=== PATIENT | female | born 1995 | race Caucasian/White ===

== ENCOUNTER → 2017-04-13 | Emergency (ER) | payer MEDICAID, OTHER ==
--- NOTE | 2017-04-13 17:43 | PD ---
HPI Chief Complaint Cramping Date Seen: Apr 13, 2017 Time Seen: 17:41 Travel History International Travel<30 Days: No Contact w/Intl Traveler<30Days: No Known Affected Area: No History of Present Illness HPI 22-year-old at 33 weeks and 2 days comes in complaining of cramping in the lower abdomen since yesterday morning. It is occurred intermittently but it has not gone away despite hydration and bedrest. Patient denies vaginal bleeding, vaginal discharge, or contractions. Patient denies antepartum complications Weeks Gestation: 33 Para: 0 : 1 History Past Medical History Medical History: Denies Significant Hx Past Surgical History Narrative Surgical Wrist surgery 2 Family History Family History: Negative Social History Alcohol Use: No Tobacco Use: No Substance Abuse: No Allergies-Medications (Allergen,Severity, Reaction): Coded Allergies: No Known Allergies (Unverified , 04/13/17) Review of Systems Except as stated in HPI: all other systems reviewed are Neg Physical Exam Narrative GENERAL: Well-nourished, well-developed patient. SKIN: Warm and dry. HEAD: Normocephalic and atraumatic. EYES: No scleral icterus. No injection or drainage. ENT: No nasal drainage noted. Mucous membranes pink. Airway patent. NECK: Supple, trachea midline. No JVD. CARDIOVASCULAR: Regular rate and rhythm without murmurs, gallops, or rubs. RESPIRATORY: Breath sounds equal bilaterally. No accessory muscle use. ABDOMEN/GI: Abdomen soft, non-tender, bowel sounds present, no rebound, no guarding Gravid to [-33] weeks size Fundal Height: [-] GENITOURINARY: External Genitalia: intact and normal in appearance BUS glands: [-Normal] speculum examination revealed normal cervix, no discharge Cervix: [-Posterior] Dilatation: [Fingertip-] Effacement: [50] Station: [--3] Presentation: [-Vertex] Membranes: [intact ] Uterine Contractions: [-Absent] FHT's: Category: [-1] Baseline: [140-] Reactive: [-Moderate] Variability: [-Moderate] Decels: [-Absent] EXTREMITIES: No cyanosis or edema. BACK: Nontender without obvious deformity. No CVA tenderness. NEUROLOGICAL: Awake and alert. Motor and sensory grossly within normal limits. Five out of 5 muscle strength in all muscle groups. Normal speech. Data Data Vital Signs Reviewed: Yes Orders Orders Vital Signs (Adult) .ON ADMISSION (04/13/17 17:31) ^ Labor Status (04/13/17 17:31) Urinalysis - C+S If Indicated (04/13/17 17:31) Diet Liquid (04/13/17 Dinner) Fibronectin (04/13/17 17:31) Labs Laboratory Tests Test 04/13/17 17:30 04/13/17 17:35 Fibronectin NEGATIVE Urine Color LIGHT-YELLOW Urine Turbidity CLEAR Urine pH 6.5 Urine Specific [place] 1.009 Urine Protein NEG mg/dL Urine Glucose (UA) NEG mg/dL Urine Ketones NEG mg/dL Urine Occult Blood NEG Urine Nitrite NEG Urine Bilirubin NEG Urine Urobilinogen LESS THAN 2.0 MG/DL Urine Leukocyte Esterase NEG Urine WBC 1 /hpf Urine Squamous Epithelial Cells 1 /hpf Urine Mucus FEW /lpf Microscopic Urinalysis Comment CULT NOT INDICATED MDM Medical Record Reviewed: Yes Plan 22yo at 33 weeks gestation Cervix closed with negative FFN - Will discharge with limited activity and adequate hydration Follow up with OB provider on Diagnosis Diagnosis: Primary Impression: 33 weeks gestation of Additional Impression: Pelvic cramping in antepartum period Disposition: 01 DISCHARGE HOME Shanelle Dinero MD Apr 13, 2017 17:43
[2017-04-13 17:45] VITALS: PULSE 99
[2017-04-13 17:50] VITALS: PULSE 98
[2017-04-13 17:52] LABS: BLOOD, URINE NEG (NEG); COMMENT (UR) CULT NOT INDICATED; CULTURE IF INDICATED CULT NOT INDICATED; GLUCOSE,URINE NEG (NEG); KETONE, URINE NEG (NEG); MUCUS URINE FEW /lpf (OCC); NITRITE,URINE NEG (NEG); PH, URINE 6.5 (5.0-8.5); SQUAMOUS EPITHELIAL CELL URINE 1 /hpf (0-5); URINE COLOR LIGHT-YELLOW (YELLW/STRAW)
[2017-04-13 17:55] VITALS: PULSE 96
[2017-04-13 18:15] VITALS: PULSE 92
[2017-04-13 18:20] VITALS: PULSE 93
[2017-04-13 18:25] VITALS: PULSE 105
== END | disposition home or self-care (01) ==
LOC: HOBED 16:46
DX: O26.893 Other specified pregnancy related conditions, third trimester (principal); R10.30 Lower abdominal pain, unspecified; Z3A.33 33 weeks gestation of pregnancy
CPT/HCPCS: 59025; 81001; 82731

== ENCOUNTER 2017-05-08 16:32 | Observation (INO) | payer MEDICAID ==
[2017-05-08] MEDS ORDERED: LACTATED RINGER'S 1000 ML INJ 1,000 ML IV SCH (18:29)
--- NOTE | 2017-05-08 18:37 | PD ---
HPI Chief Complaint Crampy pains nausea and vomiting Date Seen: May 08, 2017 Time Seen: 18:30 Travel History International Travel<30 Days: No Contact w/Intl Traveler<30Days: No Known Affected Area: No History of Present Illness HPI Patient is 22-year-old white female at 36 weeks to [address] Burkett presents complaining of crampy pains nausea and vomiting last night some diarrhea today tracing is reactive and she is having contractions every 3-4 minutes since says that she is to Dr. Burkett yesterday and was 2 cm in breech she still breech and she is 2-3 cm and thick now Weeks Gestation: 36 Para: 0 : 1 History Social History Alcohol Use: No Tobacco Use: No Substance Abuse: No Allergies-Medications (Allergen,Severity, Reaction): Coded Allergies: No Known Allergies (Unverified , 04/13/17) Review of Systems General / Constitutional: No: Fever, Weight Gain, Chills, Other Eyes: No: Diploplia, Blurred Vision, Visual changes, Pain, Photophobia HENT: No: Headaches, Vertigo, Lightheadedness Cardiovascular: No: Irregular Rhythm, Chest Pain or Discomfort, Palpitations, Tachycardia, Syncope, Varicosities, Edema, Cyanosis Respiratory: No: Cough, Short of Breath, Other Gastrointestinal: Nausea, Vomiting, Diarrhea, Abdominal Pain Genitourinary: No: Decreased Urinary Output, Oliguria Musculoskeletal: No: Limited ROM, Weakness, Cramping, Edema, Pain Skin: No Rash, No Itching, No Dryness, No Lumps, No Change in Pigmentation, No Change in Nails, No Alopecia, No Lesions Neurologic: No: Weakness, Dizziness, Syncope, Focal Abnormalities, Coordination Problem, Headache, Slurred Speech, Seizures Psychiatric: No: Depression, Suicidal Ideations, Homicidal Ideation Endocrine: No: Heat Intolerance, Cold Intolerance, Polydipsia, Polyuria, Other Physical Exam Narrative GENERAL: Well-nourished, well-developed patient. SKIN: Warm and dry. HEAD: Normocephalic and atraumatic. EYES: No scleral icterus. No injection or drainage. ENT: No nasal drainage noted. Mucous membranes pink. Airway patent. NECK: Supple, trachea midline. No JVD. CARDIOVASCULAR: Regular rate and rhythm without murmurs, gallops, or rubs. RESPIRATORY: Breath sounds equal bilaterally. No accessory muscle use. BREASTS: Bilateral exam showed no masses , no retractions, no nipple discharge. ABDOMEN/GI: Abdomen soft, non-tender, bowel sounds present, no rebound, no guarding Gravid to [-36] weeks size Fundal Height: [36-] GENITOURINARY: External Genitalia: intact and normal in appearance BUS glands: [-] Cervix: [-] Dilatation: [-2-3] Effacement: [-30] Station: [-3] Presentation: [breech-] Membranes: [intact ] Uterine Contractions: [q 3-4 min-] FHT's: Category: [-1] Baseline: [-133] Reactive: [-yes] Variability: [mod-] Decels: [0-] EXTREMITIES: No cyanosis or edema. BACK: Nontender without obvious deformity. No CVA tenderness. NEUROLOGICAL: Awake and alert. Motor and sensory grossly within normal limits. Five out of 5 muscle strength in all muscle groups. Normal speech. Data Data Orders Orders Vital Signs (Adult) .ON ADMISSION (05/08/17 18:29) ^ Labor Status (05/08/17 18:29) Urinalysis - C+S If Indicated (05/08/17 18:29) Lactated Ringer's 1000 Ml Inj (Lr 1000 M (05/08/17 18:29) MDM Interpretation(s) Patient 22-year-old white female at [address] Burkett for care and is complaining of contractions denies as well as some crampy pain, nausea and vomiting, and diarrhea today. heart rate tracing is reactive she is mattie every 3-4 minutes mildly, cervix is 2-3 cm thick and high which was she was basically yesterday when she was2 cm and breech, she is still breech. Plan to begin IV hydrate some Zofran IV ,lomotil by mouth and observe. Plan Plan to IV hydrate sedate medicate as needed , cut contractions persisted will consider overnight observation the cause of the malpresentation. We'll discuss that with Dr. Burkett or his the call DrJohanny Diagnosis Diagnosis: Primary Impression: 36 weeks gestation of Additional Impressions: Breech presentation Henderson Hick's contraction Disposition: 01 DISCHARGE HOME Condition: Stable Lazaro Peck II, MD May 08, 2017 18:37
[2017-05-08] MEDS ORDERED: DIPHENOXYLATE/ATROPINE 2.5 MG/0.025 MG TAB PO ONE (18:45)
[2017-05-08] MEDS ORDERED: ONDANSETRON HCL 4 MG/2 ML VIAL IV PUSH ONE (19:15)
[2017-05-08] MEDS ORDERED: ONDANSETRON HCL 4 MG/2 ML VIAL IV PUSH PRN (21:15)
[2017-05-08] MEDS ORDERED: SODIUM CHLORIDE 0.9% FLUSH 10 ML FLUSH IV FLUSH PRN (21:15)
[2017-05-08 22:09] LABS: AUTOMATED NEUTROPHIL # 11.2 TH/MM3 (1.8-7.7); BASOPHIL % 0.3 % (0.0-2.0); EOSINOPHIL # 0.1 TH/MM3 (0-0.4); EOSINOPHIL % 0.8 % (0.0-4.0); HEMATOCRIT 35.5 % (35.0-46.0); HEMO FLAGS DIFF FINAL; LYMPH % 19.9 % (9.0-44.0); LYMPHOCYTE # 3.1 TH/MM3 (1.0-4.8); MEAN CELL VOLUME 82.8 FL (80.0-100.0); MEAN CORPUSCULAR HGB CONC 33.8 % (32.0-36.0); MONO % 6.5 % (0.0-8.0); NEUT % 72.5 % (16.0-70.0); PLATELET COUNT 312 TH/MM3 (150-450); RED BLOOD COUNT 4.29 MIL/MM3 (4.00-5.30); RED CELL DISTRIBUTION WIDTH 13.8 % (11.6-17.2); WHITE BLOOD COUNT 15.4 TH/MM3 (4.0-11.0)
[2017-05-08 22:14] LABS: BLOOD, URINE TRACE (NEG); GLUCOSE,URINE NEG (NEG); KETONE, URINE NEG (NEG); NITRITE,URINE NEG (NEG); PH, URINE 5.5 (5.0-8.5); URINE COLOR LIGHT-YELLOW (YELLW/STRAW)
[2017-05-08 22:34] LABS: MUCUS URINE RARE /lpf (OCC)
[2017-05-08 22:35] LABS: BACTERIA, URINE OCC /hpf; COMMENT (UR) CULT NOT INDICATED; CULTURE IF INDICATED CULT NOT INDICATED; RBC, URINE 0-3 /hpf (0-3); SQUAMOUS EPITHELIAL CELL URINE > 8 /hpf (0-5); TRANSITIONAL EPI CELLS, URINE 0-5 /hpf
[2017-05-08 22:57] VITALS: TEMP 98.3
[2017-05-08 22:58] VITALS: BP 101/44; PULSE 69
[2017-05-09 08:50] VITALS: BP 106/73; PULSE 85
[2017-05-09 09:00] VITALS: RESP 18; TEMP 98.2
[2017-05-09] MEDS ORDERED: SODIUM CHLORIDE 0.9% FLUSH 10 ML FLUSH IV FLUSH SCH (09:00)
--- NOTE | 2017-05-09 11:00 | PD.LABORPN ---
Subjective Subjective patient having labor, 37 weeks and ctx q 3 min mild, No active labor after 10 hours she has not changed her cervix 2-3 and thick Objective Vital Signs Vital Signs Date Time Temp Pulse Resp B/P (MAP) Pulse Ox O2 Delivery O2 Flow Rate FiO2 05/09/17 09:00 98.2 18 05/09/17 08:50 85 106/73 (84) Objective Pelvic Exam: Cervix: [-] Dilatation: 2-3 Effacement: 30 Station: -2 Presentation: Breech Membranes: [intact Uterine Contractions: 2-5 min FHT's: Category: 1 Baseline: [-] Reactive: [-] Variability: [-] Decels: [-] Weeks Gestation: 37 Gest Age Assessed Date: May 09, 2017 Gest Age Assessed Time: 10:50 Pt started active labor?: No Medical induction of labor?: No Artificial rupture of membrane: No Arjun Dodd MD May 09, 2017 10:59
--- NOTE | 2017-05-09 11:11 | HHI.DCPOC ---
Discharge Care Plan Diagnosis: (1) 37 weeks gestation of (2) Breech presentation Report Symptoms to Your Doctor -Temperature above 100.5 degrees -Redness, of incision or excessive or foul smelling drainage -Unusual pain or calf pain -Increased vaginal bleeding -Painful or difficulty urinating -Feelings of extreme sadness or anxiety after 2 weeks Goals to Promote Your Health * To prevent worsening of your condition and complications * To maintain your health at the optimal level Directions to Meet Your Goals Take your medications as prescribed Follow your dietary instruction Follow activity as directed Ensure plenty of rest for recovery Drink fluids for hydration Keep your appointments as scheduled Take your immunizations and boosters as scheduled If your symptoms worsen call your PCP, if no PCP go to Urgent Care Center or Emergency Room Smoking is Dangerous to Your Health. Avoid second hand smoke Call the 24-hour crisis hotline for domestic abuse at Arjun Dodd MD May 09, 2017 11:10
--- NOTE | 2017-05-09 11:14 | HHI.DS ---
Admission Date May 08, 2017 at 21:22 Discharge Date: May 09, 2017 Admitting Diagnosis Diagnosis: (1) 37 weeks gestation of ICD Codes: Z3A.37 - 37 weeks gestation of (2) Breech presentation Diagnosis: Principal ICD Codes: O32.1XX0 - Maternal care for breech presentation, not applicable or unspecified Status: Acute Brief History Patient is 22-year-old white female at 36 weeks to [address] Burkett presents complaining of crampy pains nausea and vomiting last night some diarrhea today tracing is reactive and she is having contractions every 3-4 minutes since says that she is to Dr. Burkett yesterday and was 2 cm in breech she still breech and she is 2-3 cm and thick now Hospital Course contractions last night but no cervical dilatation change she had CTX but no change in 10 hours Pt Condition on Discharge: Good Discharge Disposition: Discharge Home Discharge Instructions Diet Instructions: As Tolerated, No Restrictions Activities You Can Perform: Pelvic Rest Activities to Avoid: Driving for 24 hrs Additional Activity Instruc.: discussed Contractions and need for them to increase in intensity. she has been mattie more than every 5 mmin Follow up Referrals: [facility] - 1 Week @ [facility] with Arjun Dodd MD, John William C. MD May 09, 2017 11:14
== END 2017-05-09 11:56 | disposition home or self-care (01) ==
LOC: HOBED 16:32 → H2EA 21:22
PROVIDERS: ADMIT Obstetrics & Gynecology; ATTEND Obstetrics & Gynecology
DX: O32.1XX0 Maternal care for breech presentation, not applicable or unspecified (principal); O47.1 False labor at or after 37 completed weeks of gestation; Z3A.37 37 weeks gestation of pregnancy
CPT/HCPCS: 59025; 81001; 85025; 86850; 86900; 86901; 96361; 96374; 99285; G0378; J2405

== ENCOUNTER 2017-05-19 08:15 | Observation (INO) | payer MEDICAID ==
--- NOTE | 2017-05-19 08:49 | HHI.HP ---
HPI Chief Complaint breech for version Date Seen: May 19, 2017 Time Seen: 08:40 Travel History International Travel<30 Days: No Contact w/Intl Traveler<30Days: No Known Affected Area: No History of Present Illness HPI 22 yo for version with breech infant. she is aware of risks and wants to proceed Weeks Gestation: 38 History Past Medical History Medical History: Denies Significant Hx Obstetric History Obstetric History primiparous Past Surgical History Narrative Surgical wrist x2 Family History Family History: Negative Social History Alcohol Use: No Tobacco Use: No Substance Abuse: No Allergies-Medications (Allergen,Severity, Reaction): Coded Allergies: No Known Allergies (Unverified Allergy, Unknown, 05/08/17) Home Meds No Active Prescriptions or Reported Meds Review of Systems Except as stated in HPI: all other systems reviewed are Neg Physical Exam Narrative GENERAL: Well-nourished, well-developed patient. SKIN: Warm and dry. HEAD: Normocephalic and atraumatic. NECK: Supple, trachea midline. No JVD. CARDIOVASCULAR: Regular rate and rhythm without murmurs, gallops, or rubs. RESPIRATORY: Breath sounds equal bilaterally. No accessory muscle use. BREASTS: Bilateral exam showed no masses , no retractions, no nipple discharge. ABDOMEN/GI: Abdomen soft, non-tender, bowel sounds present, no rebound, no guarding Gravid to [-] weeks size Fundal Height: [-] GENITOURINARY: External Genitalia: intact and normal in appearance BUS glands: [-] Cervix: 1-2 Dilatation: [-] Effacement: 60 Station: [-] Presentation: breech Membranes:intact Uterine Contractions: [-] FHT's: Category: 1 Baseline: [-] Reactive: [-] Variability: [-] Decels: [-] EXTREMITIES: No cyanosis or edema. BACK: Nontender without obvious deformity. No CVA tenderness. NEUROLOGICAL: Awake and alert. Motor and sensory grossly within normal limits. Five out of 5 muscle strength in all muscle groups. Normal speech. Caprini VTE Risk Assessment Caprini VTE Risk Assessment: No/Low Risk (score <= 1) Caprini Risk Assessment Model Point Value = 1 Point Value = 2 Point Value = 3 Point Value = 5 Age 41-60 Minor surgery BMI > 25 kg/m2 Swollen legs Varicose veins or History of unexplained or recurrent spontaneous Oral contraceptives or hormone replacement Sepsis (< 1 month) Serious lung disease, including pneumonia (< 1 month) Abnormal pulmonary function Acute myocardial infarction Congestive heart failure (< 1 month) History of inflammatory bowel disease Medical patient at bed rest Age 61-74 Arthroscopic surgery Major open surgery (> 45 min) Laparoscopic surgery (> 45 min) Malignancy Confined to bed (> 72 hours) Immobilizing plaster cast Central venous access Age >= 75 History of VTE Family history of VTE Factor V Leiden Prothrombin [id number] Lupus anticoagulant Anticardiolipin antibodies Elevated serum homocysteine Heparin-induced thrombocytopenia Other congenital or acquired thrombophilia Stroke (< 1 month) Elective arthroplasty Hip, pelvis, or leg fracture Acute spinal cord injury (< 1 month) Prophylaxis Regimen Total Risk Factor Score Risk Level Prophylaxis Regimen 0-1 Low Early ambulation 2 Moderate Order ONE of the following: *Sequential Compression Device (SCD) *Heparin 5000 units SQ BID 3-4 Higher Order ONE of the following medications: *Heparin 5000 units SQ TID *Enoxaparin/Lovenox 40 mg SQ daily (WT < 150 kg, CrCl > 30 mL/min) *Enoxaparin/Lovenox 30 mg SQ daily (WT < 150 kg, CrCl > 10-29 mL/min) *Enoxaparin/Lovenox 30 mg SQ BID (WT < 150 kg, CrCl > 30 mL/min) AND/OR *Sequential Compression Device (SCD) 5 or more Highest Order ONE of the following medications: *Heparin 5000 units SQ TID (Preferred with Epidurals) *Enoxaparin/Lovenox 40 mg SQ daily (WT < 150 kg, CrCl > 30 mL/min) *Enoxaparin/Lovenox 30 mg SQ daily (WT < 150 kg, CrCl > 10-29 mL/min) *Enoxaparin/Lovenox 30 mg SQ BID (WT < 150 kg, CrCl > 30 mL/min) AND *Sequential Compression Device (SCD) Data Data Vital Signs Reviewed: Yes Assessment/Plan Problem List: (1) Breech presentation ICD Codes: O32.1XX0 - Maternal care for breech presentation, not applicable or unspecified (2) 38 weeks gestation of ICD Codes: Z3A.38 - 38 weeks gestation of Assessment and Plan for Arjun Carranza MD May 19, 2017 08:49
[2017-05-19 09:13] VITALS: TEMP 98.4
[2017-05-19] MEDS ORDERED: SODIUM CHLORIDE 0.9% FLUSH 10 ML FLUSH IV FLUSH SCH (09:15)
--- NOTE | 2017-05-19 09:53 | MP ---
cc: RASHI DODD M.D. DATE OF SURGERY 05/19/2017 PROCEDURE Attempted external cephalic version. PREOPERATIVE DIAGNOSIS Breech POSTOPERATIVE DIAGNOSIS Breech SURGEON Dr. Rashi Dodd PROCEDURE IN DETAIL After informed consent, the patient was counseled about risks, benefits and alternatives of an attempted external cephalic version a 38 weeks with the possibility of an emergency . The patient underwent an attempted version. Ultrasound was performed prior with the baby in the ana maria breech presentation with the back on the patient's maternal right and the head at 12 o'clock right beneath the xiphoid. There was adequate fluid and the placenta was posterior. At this point, the heart rate was good. The patient had been monitored and reactive NST. We attempted the version with little success, cervix was checked, infant's buttocks was -2, but seemed to be well applied to the cervix. Cervix was 2 cm dilated, 70% effaced. The patient has one contraction during the attempted version which we attempted multiple times three in total of lifting the buttock out of the pelvis and rotating the head. We could get the head to flex, but we could not elevate buttocks from the pelvis and our version was unsuccessful. After three attempts, the patient was counseled for section at 39 weeks, she agreed. We will monitor the patient for 30-60 minutes. Once the strips are reassuring, she will be sent home, labor precautions given. She will return on Thursday for a section for breech presentation. MD FÉLIX Tsai/KIRIT /9:27 AM /9:44 AM
[2017-05-19] MEDS ORDERED: LACTATED RINGER'S 1000 ML INJ 1,000 ML IV SCH (10:00)
[2017-05-20] MEDS ORDERED: PRENTAB7 (16:25)
== END 2017-05-19 16:00 | disposition home or self-care (01) ==
LOC: H2EB 08:15
PROVIDERS: ADMIT Obstetrics & Gynecology; ATTEND Obstetrics & Gynecology
DX: O32.1XX0 Maternal care for breech presentation, not applicable or unspecified (principal); Z3A.38 38 weeks gestation of pregnancy
CPT/HCPCS: J7120

== ENCOUNTER 2017-05-20 15:06 | Inpatient (IN) | payer MEDICAID ==
[~2017-05-20] VITALS: Ht 167.6 cm; Wt 89.0 kg
[2017-05-20] VITALS (9 sets, daily range): BP systolic 110–123; BP diastolic 59–68; PULSE 65–85; RESP 16–18; TEMP 97.6–97.9; O2SAT 95–99
--- NOTE | 2017-05-20 16:20 | HHI.HP ---
HPI Chief Complaint hypertension 150/98 with contractions breech Date Seen: May 20, 2017 Time Seen: 11:00 Travel History International Travel<30 Days: No Contact w/Intl Traveler<30Days: No Known Affected Area: No History of Present Illness HPI 22 Yo female who is 38 3/7 weeks with hypertensin and contractions every 2 -3 min cervix 3 cm breech. For CS today Weeks Gestation: 38 Para: 0 : 1 History Past Medical History Medical History: Denies Significant Hx Obstetric History Obstetric History first preg Past Surgical History Narrative Surgical wrist x2 Family History Family History: Negative Social History Alcohol Use: No Tobacco Use: No Substance Abuse: No Allergies-Medications (Allergen,Severity, Reaction): Coded Allergies: No Known Allergies (Unverified Allergy, Unknown, 05/08/17) Home Meds No Active Prescriptions or Reported Meds Review of Systems Except as stated in HPI: all other systems reviewed are Neg Physical Exam Narrative GENERAL: Well-nourished, well-developed patient. SKIN: Warm and dry. HEAD: Normocephalic and atraumatic. EYES: No scleral icterus. No injection or drainage. ENT: No nasal drainage noted. Mucous membranes pink. Airway patent. NECK: Supple, trachea midline. No JVD. CARDIOVASCULAR: Regular rate and rhythm without murmurs, gallops, or rubs. RESPIRATORY: Breath sounds equal bilaterally. No accessory muscle use. BREASTS: Bilateral exam showed no masses , no retractions, no nipple discharge. ABDOMEN/GI: Abdomen soft, non-tender, bowel sounds present, no rebound, no guarding Gravid to [-] weeks size Fundal Height: [-] GENITOURINARY: External Genitalia: intact and normal in appearance BUS glands: [-] Cervix: [-] Dilatation: [-] Effacement: [-] Station: [-] Presentation: [-] Membranes: [intact or ruptured] Uterine Contractions: [-] FHT's: Category: [-] Baseline: [-] Reactive: [-] Variability: [-] Decels: [-] EXTREMITIES: No cyanosis or edema. BACK: Nontender without obvious deformity. No CVA tenderness. NEUROLOGICAL: Awake and alert. Motor and sensory grossly within normal limits. Five out of 5 muscle strength in all muscle groups. Normal speech. Caprini VTE Risk Assessment Caprini VTE Risk Assessment: No/Low Risk (score <= 1) Caprini Risk Assessment Model Point Value = 1 Point Value = 2 Point Value = 3 Point Value = 5 Age 41-60 Minor surgery BMI > 25 kg/m2 Swollen legs Varicose veins or History of unexplained or recurrent spontaneous Oral contraceptives or hormone replacement Sepsis (< 1 month) Serious lung disease, including pneumonia (< 1 month) Abnormal pulmonary function Acute myocardial infarction Congestive heart failure (< 1 month) History of inflammatory bowel disease Medical patient at bed rest Age 61-74 Arthroscopic surgery Major open surgery (> 45 min) Laparoscopic surgery (> 45 min) Malignancy Confined to bed (> 72 hours) Immobilizing plaster cast Central venous access Age >= 75 History of VTE Family history of VTE Factor V Leiden Prothrombin [id number] Lupus anticoagulant Anticardiolipin antibodies Elevated serum homocysteine Heparin-induced thrombocytopenia Other congenital or acquired thrombophilia Stroke (< 1 month) Elective arthroplasty Hip, pelvis, or leg fracture Acute spinal cord injury (< 1 month) Prophylaxis Regimen Total Risk Factor Score Risk Level Prophylaxis Regimen 0-1 Low Early ambulation 2 Moderate Order ONE of the following: *Sequential Compression Device (SCD) *Heparin 5000 units SQ BID 3-4 Higher Order ONE of the following medications: *Heparin 5000 units SQ TID *Enoxaparin/Lovenox 40 mg SQ daily (WT < 150 kg, CrCl > 30 mL/min) *Enoxaparin/Lovenox 30 mg SQ daily (WT < 150 kg, CrCl > 10-29 mL/min) *Enoxaparin/Lovenox 30 mg SQ BID (WT < 150 kg, CrCl > 30 mL/min) AND/OR *Sequential Compression Device (SCD) 5 or more Highest Order ONE of the following medications: *Heparin 5000 units SQ TID (Preferred with Epidurals) *Enoxaparin/Lovenox 40 mg SQ daily (WT < 150 kg, CrCl > 30 mL/min) *Enoxaparin/Lovenox 30 mg SQ daily (WT < 150 kg, CrCl > 10-29 mL/min) *Enoxaparin/Lovenox 30 mg SQ BID (WT < 150 kg, CrCl > 30 mL/min) AND *Sequential Compression Device (SCD) Data Data Vital Signs Reviewed: Yes Assessment/Plan Problem List: (1) Hypertension affecting in third trimester ICD Codes: O16.3 - Unspecified maternal hypertension, third trimester (2) 38 weeks gestation of ICD Codes: Z3A.38 - 38 weeks gestation of (3) Breech presentation ICD Codes: O32.1XX0 - Maternal care for breech presentation, not applicable or unspecified Plan: for CS Arjun Dodd MD May 20, 2017 16:20
[2017-05-20] MEDS ORDERED: PRENTAB7 (16:25)
[2017-05-20] MEDS ORDERED: SODIUM CHLORIDE 0.9% 20 ML VIAL ONE (16:28)
[2017-05-20] MEDS ORDERED: DEXAMETHASONE SOD PHOS PF 10 MG/ML VIAL ONE (16:28)
[2017-05-20] MEDS ORDERED: ROPIVACAINE 0.5% PF INJ 30 ML VIAL ONE ×2 (16:28→16:44)
[2017-05-20] MEDS ORDERED: LACTATED RINGER'S 1000 ML IV ONE (16:30)
[2017-05-20] MEDS ORDERED: LACTATED RINGER'S 1000 ML IV SCH (16:30)
[2017-05-20] MEDS ORDERED: ceFAZolin 2 GM PREMIX 50 ML IV SCH ×2 (16:30→17:15)
[2017-05-20] MEDS ORDERED: CITRIC ACID-SODIUM CITRATE LIQ 30 ML UDC PO SCH ×2 (16:30→17:45)
[2017-05-20 16:40] LABS: AUTOMATED NEUTROPHIL # 9.9 TH/MM3 (1.8-7.7); BASOPHIL % 0.2 % (0.0-2.0); EOSINOPHIL # 0.1 TH/MM3 (0-0.4); EOSINOPHIL % 0.5 % (0.0-4.0); HEMO FLAGS DIFF FINAL; LYMPH % 18.9 % (9.0-44.0); LYMPHOCYTE # 2.5 TH/MM3 (1.0-4.8); MEAN CELL VOLUME 82.8 FL (80.0-100.0); MEAN CORPUSCULAR HEMOGLOBIN 27.4 PG (27.0-34.0); MEAN CORPUSCULAR HGB CONC 33.1 % (32.0-36.0); MONO % 5.8 % (0.0-8.0); NEUT % 74.6 % (16.0-70.0); PLATELET COUNT 290 TH/MM3 (150-450); RED BLOOD COUNT 4.35 MIL/MM3 (4.00-5.30); RED CELL DISTRIBUTION WIDTH 14.1 % (11.6-17.2); WHITE BLOOD COUNT 13.2 TH/MM3 (4.0-11.0)
[2017-05-20] MEDS ORDERED: LACTATED RINGER'S 1000 ML INJ 1,000 ML IV SCH ×2 (16:41→23:04)
[2017-05-20] MEDS ORDERED: EPINEPHrine HCL PF/SF (1:1000) 1 MG/ML AMP I-OCULAR ONE (16:44)
[2017-05-20] MEDS ORDERED: LACTATED RINGER'S 1000 ML INJ 1,000 ML IV ONE (17:00)
[2017-05-20 17:04] LABS: BACTERIA, URINE RARE /hpf; BLOOD, URINE NEG (NEG); COMMENT (UR) CULT NOT INDICATED; CULTURE IF INDICATED CULT NOT INDICATED; GLUCOSE,URINE NEG (NEG); KETONE, URINE NEG (NEG); MUCUS URINE MANY /lpf (OCC); NITRITE,URINE NEG (NEG); PH, URINE 5.5 (5.0-8.5); SQUAMOUS EPITHELIAL CELL URINE 4 /hpf (0-5); URINE COLOR YELLOW (YELLW/STRAW)
[2017-05-20] MEDS ORDERED: EPIDURAL-NO SYSTEMIC NARCOTICS PRN (17:20)
[2017-05-20] MEDS ORDERED: EPIDURAL-DIPHENHYDRAMINE HCL 50 MG CAP PO PRN (17:20)
[2017-05-20] MEDS ORDERED: EPIDURAL-DIPHENHYDRAMINE HCL 50 MG/ML VIAL IV PUSH PRN (17:20)
[2017-05-20] MEDS ORDERED: EPIDURAL-DO NOT ADMINISTER ANTICOAGULANTS PRN (17:20)
[2017-05-20] MEDS ORDERED: EPIDURAL-NALOXONE HCL 0.4 MG/ML AMP IV PUSH PRN (17:20)
--- NOTE | 2017-05-20 18:09 | PD.OB.DELI ---
Procedure Note Section Procedure Pre Op Diagnosis: (1) Breech presentation (2) 38 weeks gestation of Post Op Diagnosis: (1) Hypertension affecting in third trimester (2) 38 weeks gestation of (3) Breech presentation Performed by Arjun Dodd Procedure: Primary Low Transverse Sec Indication for delivery: malposition (ana maria breech failed version ) Previous condition: None Informed consent obtained: For anesthesia, For procedure Confirmed correct: Patient, Procedure, Site, Time-out taken Anesthesia: Spinal Monitoring during procedure: Blood pressure monitoring Urinary catheter: Inserted using sterile technique, To dependent drainage Sterile preparation: Duraprep Position: Supine with wedge to left side Operative Features Skin Incision: Pfannenstiel Uterine Incision: Low transverse w/knife / blunt ext Membranes Ruptured: Artificially Presentation: Breech Delivery date: May 20, 2017 Delivery time: 17:32 Delivery of : Uneventful : Male, Single One Minute : 9 Five Minute : 9 Weight: 8# 12 oz Status of : Viable Placenta delivered: Intact Medications: Antibiotics, Oxytocin Estimated blood loss: 500 Procedure tolerated: Well Maternal Condition: Stable Condition: Stable Arjun Dodd MD May 20, 2017 18:09
[2017-05-20] MEDS ORDERED: SIMETHICONE 80 MG CHEWABLE TAB PO PRN (18:15)
[2017-05-20] MEDS ORDERED: oxyCODONE/ACETAMINOPHEN 5 MG/325 MG TAB PO PRN (18:15)
[2017-05-20] MEDS ORDERED: OXYTOCIN 30 UNITS-500ML PREMIX 500 ML IV ONE (18:15)
[2017-05-20] MEDS ORDERED: KETOROLAC TROMETHAMINE 60 MG/2 ML (IM) VIAL IM PRN (18:15)
[2017-05-20] MEDS ORDERED: SODIUM CHLORIDE 0.9% FLUSH 10 ML FLUSH IV FLUSH PRN (18:15)
[2017-05-20] MEDS ORDERED: OXYTOCIN 30 UNITS-500ML PREMIX 500 ML ONE (18:36)
[2017-05-20] MEDS: SODIUM CHLORIDE 0.9% FLUSH 10 ML FLUSH IV FLUSH SCH (21:00)
[2017-05-21] VITALS: BP 123/75; PULSE 72; RESP 18; TEMP 97.9
--- NOTE | 2017-05-21 | MP ---
cc: RASHI DODD M.D. DATE OF SURGERY: 05/20/2017 PROCEDURE Primary low transverse section. PREOPERATIVE DIAGNOSIS Breech presentation, contractions every 2-3 minutes. Cervical change, active labor and gestational hypertension with blood pressure 150/98 in the office. POSTOPERATIVE DIAGNOSIS Breech presentation, contractions every 2-3 minutes. Cervical change, active labor and gestational hypertension with blood pressure 150/[address] in [address] SURGEON Dr. Rashi Dodd ESTIMATED BLOOD LOSS 500 cc ANESTHESIA: Spinal. FINDINGS: Live male infant, breech presentation, ana maria. Apgars 9 and 9, weight 8 pounds 12 ounces. PROCEDURE IN DETAIL After informed consent the patient was taken to the operating room where she was placed under spinal anesthesia, placed in the supine position, left lateral tilt. The abdomen, perineum and vagina prepped and draped in normal sterile fashion. After adequate anesthesia, time-out was taken. The patient was prepped and draped. The father was brought in the room a Pfannenstiel skin incision was carried sharply to the skin to the fascia. The fascia was nicked in the midline. The incision was then laterally using Chase scissors. Rectus muscles dissected off the fascia with sharp and blunt dissection and the rectus muscle in midline without difficulty. Peritoneum was entered bluntly with a finger. The incision was then extended laterally using blunt traction. The uterus noted be midline. There were large veins on the bottom lower uterine segment. Bladder flap was created by dissecting the bladder off the lower uterine segment and then we found an area without veins. We entered the uterus carefully finishing with a blunt finger into the uterus. Clear fluid was noted. The incision was extended laterally using blunt traction. A hand was placed in the uterus. The 's buttocks was guided through the incision using fundal pressure. The infant was delivered remaining portion up to the level of the scapulas. Both legs were flexed across the chest and delivered. At this point the infant was rotated to the left and right arm was flexed across the chest and delivered. The infant rotated to the right and the left arm was done in a similar type fashion without difficulty. The infant's head delivered without a Marceau maneuver easily came out of the uterus with fundal pressure. The infant was crying when it came out, so we waited 45 seconds for delayed cord clamping. We then clamped, cut the cord after about 50 seconds and handed the to pediatrics in attendance. Cord blood was collected. Placenta was delivered manually. Uterus exteriorized, wiped free from all remaining products of conception. The uterine incision was then closed with running locking stitch of chromic suture. Good hemostasis was achieved. The uterus was placed back in the abdomen. There was some oozing coming from the bladder flaps. This was cauterized with bipolar cautery. Good hemostasis was achieved. The uterus was placed back in the abdomen, noted to be hemostatic. The peritoneum was closed with chromic stitch. The fascia closed with Vicryl suture. The skin was closed with subcuticular stitch. Each layer was noted to be hemostatic prior to closure. The patient tolerated the procedure well. She was taken to the Recovery Room in stable condition. The with the mother for bonding and breast feeding. MD FÉLIX Tsai/RADHA /6:10 PM /11:45 PM
[2017-05-21 04:00] VITALS: BP 115/75; PULSE 69; RESP 18; TEMP 98.5
[2017-05-21] MEDS ORDERED: OXYTOCIN 30 UNITS-500ML PREMIX 500 ML IV PRN (04:15)
[2017-05-21] MEDS: IBUPROFEN 600 MG TAB PO PRN ×3 (05:51→19:35)
--- NOTE | 2017-05-21 07:35 | HHI.OB ---
Subjective Post Day: 1 Remarks doing well bleeding controlled Objective Vitals/I&O Vital Signs Date Time Temp Pulse Resp B/P (MAP) Pulse Ox O2 Delivery O2 Flow Rate FiO2 05/21/17 04:00 98.5 69 18 05/21/17 04:00 115/75 (88) 05/21/17 00:00 97.9 72 18 123/75 (91) 05/20/17 19:46 65 120/68 (85) 05/20/17 19:46 97.6 18 99 05/20/17 19:04 97.6 73 16 99 05/20/17 19:04 116/66 (83) 05/20/17 18:47 117/66 (83) 05/20/17 18:47 85 18 99 05/20/17 18:32 18 99 05/20/17 18:31 83 05/20/17 18:31 116/59 (78) 05/20/17 18:19 98 05/20/17 18:18 79 18 110/59 (76) 05/20/17 18:03 123/59 (80) 05/20/17 18:02 97.9 18 95 05/20/17 18:02 79 Objective Remarks GENERAL: Well-nourished, well-developed patient. ABDOMEN/GI: Abdomen soft, non-tender. Fundus: Firm, non-tender at umbilicus. GENITOURINARY: Light to moderate bleeding. EXTREMITIES: No cyanosis or edema, non-tender, without signs of DVT. Medications and IVs Current Medications Medications (Trade) Dose Ordered Sig/Carla Route Start Time Stop Time Status Last Admin Lactated Ringer's 1,000 ml @ 100 mls/hr Q10H IV 05/20/17 23:04 05/21/17 19:03 05/21/17 00:40 Oxytocin 500 ml @ 100 mls/hr UNSCH X1 PRN IV 05/21/17 04:15 05/22/17 04:14 (NS Flush) 2 ml BID IV FLUSH 05/20/17 21:00 (NS Flush) 2 ml UNSCH PRN IV FLUSH 05/20/17 18:15 (Mylicon Chew) 80 mg QID PRN PO 05/20/17 18:15 (Motrin) 600 mg Q6H PRN PO 05/20/17 18:15 11/30/17 05:51 (Toradol Inj) 30 mg Q6H PRN IM 05/20/17 18:15 05/21/17 18:14 (Percocet 5-325 Mg) 1 tab Q4H PRN PO 05/20/17 18:15 (Percocet 5-325 Mg) 2 tab Q4H PRN PO 05/20/17 18:15 (M-M-R Ii Inj) 0.5 ml ONCE ONCE SQ 05/21/17 16:00 05/21/17 16:01 (Boostrix Inj) 0.5 ml ONCE ONCE IM 05/21/17 16:00 05/21/17 16:01 Miscellaneous Information NO SYSTEMIC NARCOTICS TO BE GIVEN FO... UNSCH PRN .XX 05/20/17 17:20 05/21/17 17:19 (Narcan Inj) 0.4 mg UNSCH PRN IV PUSH 05/20/17 17:20 05/21/17 17:19 (Benadryl Inj) 25 mg Q6H PRN IV PUSH 05/20/17 17:20 05/21/17 17:19 (Benadryl) 50 mg Q6H PRN PO 05/20/17 17:20 05/21/17 17:19 Miscellaneous Information ALL NURSING DEPARTMENTS UNSCH PRN .XX 05/20/17 17:20 05/21/17 17:19 Assessment/Plan Problem List: (1) Hypertension affecting in third trimester ICD Codes: O16.3 - Unspecified maternal hypertension, third trimester (2) 38 weeks gestation of ICD Codes: Z3A.38 - 38 weeks gestation of (3) Breech presentation ICD Codes: O32.1XX0 - Maternal care for breech presentation, not applicable or unspecified Plan: LTCS doing well Arjun Dodd MD May 21, 2017 07:35
[2017-05-21 09:25] LABS: AUTOMATED NEUTROPHIL # 19.2 TH/MM3 (1.8-7.7); BASOPHIL % 0.1 % (0.0-2.0); HEMATOCRIT 28.5 % (35.0-46.0); LYMPH % 9.2 % (9.0-44.0); MEAN CELL VOLUME 82.1 FL (80.0-100.0); MEAN CORPUSCULAR HEMOGLOBIN 27.8 PG (27.0-34.0); MEAN CORPUSCULAR HGB CONC 33.9 % (32.0-36.0); MONO % 4.6 % (0.0-8.0); NEUT % 86.1 % (16.0-70.0); PLATELET COUNT 278 TH/MM3 (150-450); RED BLOOD COUNT 3.47 MIL/MM3 (4.00-5.30); RED CELL DISTRIBUTION WIDTH 13.9 % (11.6-17.2); WHITE BLOOD COUNT 22.3 TH/MM3 (4.0-11.0)
[2017-05-21 09:38] LABS: HEMO FLAGS AUTO DIFF
[2017-05-21 12:00] VITALS: BP 121/69; PULSE 72; RESP 16; TEMP 98.3
[2017-05-21] MEDS: oxyCODONE/ACETAMINOPHEN 5 MG/325 MG TAB PO PRN ×2 (12:22→19:35)
[2017-05-21 16:00] VITALS: BP 114/66; PULSE 77; RESP 16; TEMP 97.9
[2017-05-21] MEDS ORDERED: MEASLES, MUMPS, RUBELLA VACCINE 0.5 ML VIAL SQ ONE (16:00)
[2017-05-21] MEDS ORDERED: DIPHTH/TETANUS/ACEL PERTUSSIS (BOOSTER) 0.5 ML VIAL/PFS IM ONE (16:00)
[2017-05-21] MEDS: SODIUM CHLORIDE 0.9% FLUSH 10 ML FLUSH IV FLUSH SCH (19:33)
[2017-05-21 21:00] VITALS: BP 111/61; PULSE 91; RESP 18; TEMP 98.3
--- NOTE | 2017-05-22 02:01 | HHI.DCPOC ---
Discharge Care Plan Diagnosis: (1) delivery delivered Report Symptoms to Your Doctor -Temperature above 100.5 degrees -Redness, of incision or excessive or foul smelling drainage -Unusual pain or calf pain -Increased vaginal bleeding -Painful or difficulty urinating -Feelings of extreme sadness or anxiety after 2 weeks Goals to Promote Your Health * To prevent worsening of your condition and complications * To maintain your health at the optimal level Directions to Meet Your Goals Take your medications as prescribed Follow your dietary instruction Follow activity as directed Ensure plenty of rest for recovery Drink fluids for hydration Keep your appointments as scheduled Take your immunizations and boosters as scheduled If your symptoms worsen call your PCP, if no PCP go to Urgent Care Center or Emergency Room Smoking is Dangerous to Your Health. Avoid second hand smoke Call the 24-hour crisis hotline for domestic abuse at Arjun Dodd MD May 22, 2017 02:01
[2017-05-22] MEDS: IBUPROFEN 600 MG TAB PO PRN ×2 (03:30→10:24)
[2017-05-22] MEDS: oxyCODONE/ACETAMINOPHEN 5 MG/325 MG TAB PO PRN ×2 (03:31→10:24)
--- NOTE | 2017-05-22 07:49 | HHI.OB ---
Subjective Post Day: 1 Remarks doing well Objective Vitals/I&O Vital Signs Date Time Temp Pulse Resp B/P (MAP) Pulse Ox O2 Delivery O2 Flow Rate FiO2 05/21/17 21:00 98.3 05/21/17 21:00 91 18 111/61 (78) 05/21/17 16:00 97.9 77 16 114/66 (82) 05/21/17 12:00 98.3 72 16 121/69 (86) Objective Remarks GENERAL: Well-nourished, well-developed patient. ABDOMEN/GI: Abdomen soft, non-tender. Fundus: Firm, non-tender at umbilicus. GENITOURINARY: Light to moderate bleeding. EXTREMITIES: No cyanosis or edema, non-tender, without signs of DVT. Medications and IVs Current Medications Medications (Trade) Dose Ordered Sig/Carla Route Start Time Stop Time Status Last Admin (NS Flush) 2 ml BID IV FLUSH 05/20/17 21:00 (NS Flush) 2 ml UNSCH PRN IV FLUSH 05/20/17 18:15 (Mylicon Chew) 80 mg QID PRN PO 05/20/17 18:15 (Motrin) 600 mg Q6H PRN PO 05/20/17 18:15 05/22/17 03:30 (Percocet 5-325 Mg) 1 tab Q4H PRN PO 05/20/17 18:15 05/22/17 03:31 (Percocet 5-325 Mg) 2 tab Q4H PRN PO 05/20/17 18:15 Assessment/Plan Problem List: (1) Hypertension affecting in third trimester ICD Codes: O16.3 - Unspecified maternal hypertension, third trimester (2) 38 weeks gestation of ICD Codes: Z3A.38 - 38 weeks gestation of (3) Breech presentation ICD Codes: O32.1XX0 - Maternal care for breech presentation, not applicable or unspecified Qualifiers: Qualified Codes: O32.1XX0 - Maternal care for breech presentation, not applicable or unspecified Plan: LTCS doing well Arjun Dodd MD May 22, 2017 07:49
[2017-05-22] MEDS ORDERED: OXYC1TAB63 PO (07:56)
--- NOTE | 2017-05-22 07:57 | HHI.DS ---
Admission Date May 20, 2017 at 15:06 Discharge Date: May 22, 2017 Admitting Diagnosis Diagnosis: (1) delivery delivered Diagnosis: Principal ICD Codes: O82 - Encounter for delivery without indication Delivery Date: May 20, 2017 : Primary Reason: breech : Male, Single Brief History 22 Yo female who is 38 3/7 weeks with hypertensin and contractions every 2 -3 min cervix 3 cm breech. For CS today Hospital Course doing well dc home PPD #2 Pt Condition on Discharge: Good Discharge Disposition: Discharge Home Discharge Instructions Diet Instructions: As Tolerated, No Restrictions Activities You Can Perform: Pelvic Rest Activities to Avoid: Driving for 24 hrs Follow up Referrals: [facility]COM[facility] - 2 Weeks @ [facility] with Arjun Dodd MD New Medications: Oxycodone HCl/Acetaminophen (Oxycodone-Acetaminophen 5-325) 5 Mg-325 Mg Tablet 1 TAB PO Q4H PRN for PAIN SCALE 3 TO 5, #30 TAB 0 Refills Continued Medications: Pnv No.95/Ferrous Fum/Folic AC ( Vitamins Tablet) 28 Mg Iron-800 Mcg Tablet Arjun Dodd MD May 22, 2017 07:57
== END 2017-05-22 14:38 | disposition home or self-care (01) | DRG 766 ==
LOC: H2EB 15:06 → H1EA 19:31
PROVIDERS: ADMIT Obstetrics & Gynecology; ATTEND Obstetrics & Gynecology
PROC: 10D00Z1 Extraction of Products of Conception, Low, Open Approach (ICD-10-PCS; principal; 2017-05-20)
DX: O32.1XX0 Maternal care for breech presentation, not applicable or unspecified (principal); O13.4 Gestational [pregnancy-induced] hypertension without significant proteinuria, complicating childbirth; Z37.0 Single live birth; Z3A.38 38 weeks gestation of pregnancy
CPT/HCPCS: 59025; 80307; 81001; 85025; 86850; 86900; 86901; J0171; J1100; J2590; J2795; J7120